=== PATIENT | female | born 2000 | race African-American/Black ===

== ENCOUNTER 2022-02-24 02:03 | Inpatient (IN) | payer MEDICAID ==
[~2022-02-24] VITALS: Ht 170.2 cm; Wt 70.5 kg
[2022-02-24] VITALS (13 sets, daily range): BP systolic 103–139; BP diastolic 56–88; PULSE 50–78; TEMP 98.1–98.4
--- NOTE | 2022-02-24 02:30 | NUR ---
PT PRESENTS TO L&D WITH C/O SPOTTING ONCE WHEN SHE WENT TO THE [place]. THAT IS WHY SHE CAME IN. SHE STARTED HAVING UC'S ABOUT MIDNIGHT TONIGHT. DENIES LEAKING FLUID. PT TO BED, MONITORS PLACED ON HER, UC'S PALPATE MILD. SVE /-2, CERVIX POSTERIOR.
--- NOTE | 2022-02-24 04:30 | NUR ---
PT STATES SHE IS DOING FINE. THE UC'S ARE PAINFUL BUT DOES NOT WANT AN EPIDURAL. PT DENIES FEELING PRESSURE OR NEED TO PUSH.
[2022-02-24 04:39] LABS: BASO % 0.5 % (0.0-2.0); EOS # 0.1 K/mm3 (0.0-0.7); EOS % 0.8 % (0.0-4.0); GRAN # 3.4 K/mm3 (1.4-6.5); GRAN % 54.9 % (42.2-75.2); HEMOGLOBIN 10.2 g/dl (12.5-16.0); LYMPH # 2.1 K/mm3 (1.2-3.4); MEAN CELL VOLUME 86 fl (80.0-100.0); MEAN CORPUSCULAR HEMOGLOBIN 27 pg (27-31); MEAN CORPUSCULAR HGB CONC 32 g/dl (33.0-37.0); MEAN PLATELET VOLUME 11.3 fl (7.4-10.4); MONO # 0.7 K/mm3 (0.1-0.6); MONO % 10.6 % (1.7-9.3); PLATELET COUNT 209 K/mm3 (130-400); RED BLOOD COUNT 3.75 M/mm3 (4.10-5.30); REDCELL DISTRIBUTION WIDTH-CV 15.7 % (11.5-14.5)
[2022-02-24 04:42] LABS: HEMATOCRIT 32.2 % (37.0-47.0)
--- NOTE | 2022-02-24 05:34 | NUR ---
PT ROLLED OVER FROM HER SIDE. SHE IS GRUNTING WITH UC'S. SVE ANT LIP NOTED. FHR 100-110, O2 @ 10 L MIN ON VIA MASK. DR DELGADO NOTIFIED TO COME FOR DELIVERY. PT PREPPED FOR DELIVERY. 0545 DR DELGADO HERE. PT PUTIN FOOTREST FOR DEIVERY. PT IS PUSHING WITH 'S. 0551 VAG DELIVERY FEMALE INFANT OVER INTACT PERINEUM. CORD CLAMPED AND CUT. BABY TO WARMER TO CARE OF SEYMOUR MARKS RN. PLACENTA DELIVERED AT 0555 INTACT.
--- NOTE | 2022-02-24 06:15 | NUR ---
THIS RN RECEIVES REPORT FROM [employer]
--- NOTE | 2022-02-24 07:05 | NUR ---
[facility] CARE DONE. CLEAN PAD AND UNDERWEAR PLACED. PT IN WHEELCHAIR TO 214. ORIENTED TO ROOM. CALL LIGHT WITHIN REACH.
--- NOTE | 2022-02-24 07:30 | NUR ---
THIS RN GIVES REPORT TO Lenny MEJIA RN
--- NOTE | 2022-02-24 19:15 | NUR ---
PT AWAKE LYING IN BED WATCHING TV. PT STATES SHE IS NOT HAVING ANY PAIN SHE DOES NOT WANT TO BE WOKEN UP FOR PAIN MEDICATION. SHE WILL LET ME KNOW IF SHE NEEDS ANY.
--- NOTE | 2022-02-24 23:15 | NUR ---
RN INTO PATIENTS ROOM. RN NOTES PATIENTS TODDLER DAUGHTER IS STILL IN ROOM, LAYING IN BED WITH PATIENT. PATIENT'S SIGNIFICANT OTHER ASLEEP ON THE BENCH. RN EXPLAINS TO PATIENT THAT HER OLDER CHILD CANNOT SPEND THE NIGHT AND THIS WOULD HAVE BEEN EXPLAINED AT ADMISSION AND ACKNOWLEDGEMENT SIGNED WITH CONSENTS. PT STATES SHE WAS NOT AWARE OF THIE RULE. PT WOKE HER SIGNIFICANT OTHER TO INFORM HIM THAT HE NEEDS TO TAKE OTHER CHILD HOME FOR THE NIGHT.
[2022-02-25 08:33] VITALS: BP 103/57; PULSE 57; TEMP 97.5
[2022-02-25] MEDS ORDERED: MOTRIN 600600 MG/TAB PO (09:09)
== END 2022-02-25 13:00 | disposition home or self-care (01) | DRG 807 ==
LOC: LDRO 02:03 → LDR 03:41 → OB 07:26
PROVIDERS: Obstetrics & Gynecology; ADMIT Obstetrics & Gynecology
PROC: 10E0XZZ Delivery of Products of Conception, External Approach (ICD-10-PCS; principal; 2022-02-24)
DX: O99.344 Other mental disorders complicating childbirth (principal); Z37.0 Single live birth; F41.9 Anxiety disorder, unspecified; Z3A.38 38 weeks gestation of pregnancy; F90.9 Attention-deficit hyperactivity disorder, unspecified type; J45.909 Unspecified asthma, uncomplicated; O99.52 Diseases of the respiratory system complicating childbirth; O99.02 Anemia complicating childbirth; D64.9 Anemia, unspecified; Z14.8 Genetic carrier of other disease
CPT/HCPCS: J2590